=== PATIENT | female | born 1950 | race African-American/Black ===

== ENCOUNTER 2019-04-20 02:49 | Emergency (ER) | payer MEDICARE, OTHER ==
[~2019-04-20] VITALS: Ht 162.6 cm; Wt 114.0 kg
[2019-04-20] MEDS ORDERED: HYDROCODONE/ACETAMINOPHEN 5/325MG TABLET PO STA (03:30)
[2019-04-20 03:58] LABS: HEMATOCRIT. 36.6 % (36.0-48.0); HEMOGLOBIN. 11.7 g/dL (12.0-16.0); MEAN CORPUSCULAR HEMOGLOBIN 24.7 pg (28.0-32.0); MEAN CORPUSCULAR VOLUME 77.8 fL (81.0-99.0); MEAN PLATELET VOLUME 9.6 fl (7.4-10.4); PLATELET 259 x1000/uL (130-400); RED BLOOD CELL COUNT 4.71 mill/uL (4.2-5.4); RED CELL DISTRIBUTION WIDTH 15.9 % (11.6-14.6)
[2019-04-20 04:02] LABS: CHLORIDE 109 mEq/L (98-107)
[2019-04-20 04:04] LABS: INR 1.1; PARTIAL THROMBOPLASTIN TIME 39.1 sec (23.4-31.0); PROTHROMBIN TIME 10.9 sec (9.6-11.0)
[2019-04-20 05:33] LABS: PLATELET ESTIMATE NORMAL
[2019-04-20] MEDS ORDERED: HYDROCODONE/ACETAMINOPHEN 5/325MG TABLET PO ONE (05:45)
[2019-04-20 05:55] VITALS: BP 119/68
== END 2019-04-20 07:20 | disposition home or self-care (01) ==
LOC: ER 02:49
DX: M13.861 Other specified arthritis, right knee (principal); I10 Essential (primary) hypertension
CPT/HCPCS: 36415; 93971; 99284